=== PATIENT | female | born 1955 | race Caucasian/White ===

== ENCOUNTER 2023-03-02 10:25 | Outpatient (CLI) | payer MEDICARE, OTHER, SELFPAY ==
[2023-03-02 14:04] LABS: Anion Gap 3 mmol/L (8-16); Blood Urea Nitrogen 13 mg/dL (7-17); Calcium 9.2 mg/dL (8.4-10.2); Carbon Dioxide 34 mmol/L (22-30); Chloride 103 mmol/L (98-107); Estimated Glomerular Filt Rate > 60; Glucose 66 mg/dL (65-110); Potassium 4.4 mmol/L (3.4-5.0); Sodium 140 mmol/L (137-145)
== END 2023-03-02 10:26 | disposition home or self-care (01) ==
LOC: ANHSURGERY 10:39
PROVIDERS: Anesthesiology; Visit Provider Obstetrics & Gynecology Gynecology
DX: R60.9 Edema, unspecified (principal)
CPT/HCPCS: 36415; 80048

== ENCOUNTER 2023-03-07 00:51 | Day surgery (SDC) | payer MEDICARE, OTHER, SELFPAY ==
[2023-02-24 14:26] VITALS: BMI 24.4
--- NOTE | 2023-02-24 14:27 | PC.NURSE ---
Report to the Outpatient Waiting Room, entrance under the green pavilion located off [facility], at time __0945 on date _03/07/23 . Planned Procedure Time: _1145 . Time changes happen often and if your time is changed the preop area will call you the afternoon before. - You and your visitor will be asked to self-screen and do not enter if you have any COVID symptoms. - A mask is optional within the hospital at this time. Patients may have clear liquids (water, carbonated beverages, clear teas, apple juice) until 3 hours prior to surgery with a maximum of 20 ounces. - No food from midnight until time of surgery - Infants may have breast milk until 4 hours before surgery, formula 6 hours prior to surgery. - Children will be allowed to drink immediately following surgery. If applicable, please bring a bottle or sippy cup to assist with drinking. Juice, water, soda, and popsicles are readily available. For infants on formula, please bring formula the day of surgery. Pacifiers are allowed. Take the following medications with a SIP of water the morning of surgery: ____NONE DO NOT STOP ANY OF YOUR OTHER PRESCRIPTION MEDICATIONS PRIOR TO SURGERY ?EXCEPT THE FOLLOWING Medications to discontinue per physician ____ALL VITAMINS/SUPPLEMENTS 3 DAYS PRE OP.LAST DOSE 03/03/23 Please no make-up, nail welsh, hairspray, perfume, deodorant, or body powder the day of surgery. No jewelry (including any body piercings) or valuables the day of surgery, leave them at home. Please take a shower or bath the night before, or the morning of, surgery with an antibacterial soap. Wear comfortable, loose fitting clothing. Children are encouraged to wear pajamas. - Jewelry must be removed prior to entering the operating room. Rings and piercings that are not removed may be cut off. - The hospital will not accept responsibility for valuables. - Please leave all valuables, including medications, at home the day of surgery. If you are going home after surgery, a licensed milk driver must drive you home. - NO public transportation without another adult if you receive anesthesia. - We recommend that an adult stay with you for 24 hours following discharge. - We also recommend that you do not drive, make important decision, drink alcoholic beverages, or take any drugs that were not prescribed by your health care provider for at least 24 hours after your discharge time. For Pediatric surgeries, we recommend two adults accompany the child home. Follow any additional instructions given to you from your surgeon. If you or anyone in your household have experienced Covid symptoms in the past week, please notify your surgeon or the nurse liaison at the phone number below for possible testing. Telephone instructions given to ___PATIENT and asked if any additional questions and then verbalized understanding. Patient advised to call surgeon office or pre surgery nurse liaison [phone] if any additional questions.
--- NOTE | 2023-03-07 07:43 | WPDHPUPDATE1 ---
History and Physical Update Update Date/Time: 03/07/23 07:43 History and Physical has been reviewed, including an updated exam of the patient. There are NO changes in the patient's condition. Risks, benefits, and alternatives have been discussed and questions answered. Patient agrees to proceed with procedure.
--- NOTE | 2023-03-07 07:43 | PM.HPGS ---
History of Present Illness History of Present Illness Consent: Risks, benefits, and alternatives have been discussed and questions answered. Patient agrees to proceed with procedure. Chief complaint: thick endometrial lining Narrative: Billie Knight is a 67 year old female who had a pelvic ultrasound ordered by her primary physician that revealed a thickened endometrium at 1.13cm. The endometrium also showed a moderate amount of fluid with a nodular appearance to the periphery of the endometrium. In addition she had a 6cm simple cyst on her right ovary. CA 125 was normal. Patient was initially having pain that did resolve. Was recommended to proceed with D&C hysteroscopy to further evaluate the thickened endometrium. The patient denies any vaginal bleeding. Patient voices understanding and agrees to proceed. Review of Systems Review of Systems: not repeated day of surgery; patient states no changes in status PMFSH Past Medical History Medical History (Updated 03/07/23 @ 07:48 by Floresita Suarez MD) (normal spontaneous vaginal delivery) x2 Osteoporosis Surgical History Surgical History (Updated 03/07/23 @ 07:47 by Floresita Suarez MD) History of breast augmentation History of D&C 1974 for miscarriage Social History Social History Smoking status: Never smoker Living arrangements: with family Spiritual care concerns: No Meds Home Medications and Allergies Home Medications Medication Instructions Recorded Confirmed Type calcium carbonate 600 mg calcium 600 mg PO DAILY 02/24/23 02/24/23 History (1,500 mg) tablet cholecalciferol (vitamin D3) 125 5,000 unit PO DAILY 02/24/23 02/24/23 History mcg (5,000 unit) capsule estradiol 0.01% (0.1 mg/gram) 0.1 appful vaginal WEEKLY 02/24/23 02/24/23 History vaginal cream fexofenadine 180 mg tablet 180 mg PO PRN PRN Allergy Symptoms 02/24/23 02/24/23 History hydrochlorothiazide 25 mg tablet 25 mg PO PRN PRN Edema 02/24/23 02/24/23 History multivitamin (Daily Multi-Vitamin 1 tablet PO DAILY 02/24/23 02/24/23 History tablet) multivitamin with minerals 1 tablet PO DAILY 02/24/23 02/24/23 History (Hair,Skin and Nails tablet) olopatadine 0.1 % eye drops 1 drp EACH EYE BID 02/24/23 02/24/23 History polyethylene glycol 3350 17 17 g PO HS 02/24/23 02/24/23 History gram/dose oral powder vitamin B complex 1 cap PO DAILY 02/24/23 02/24/23 History wheat dextrin-calcium carbonate 1 1 tablet PO DAILY 02/24/23 02/24/23 History gram-100 mg calcium chewable tablet (Easy Fiber (wheat dextrin)) Allergies Allergy/AdvReac Type Severity Reaction Status Date / Time No Known Allergies Allergy Verified 02/24/23 14:08 Exam Const: General: healthy appearing and alert Orientation/consciousness: patient oriented x3 Resp: Effort & Inspection: normal respiratory effort GI: GI Palp: Yes Soft to palpation, No Tenderness to palpation present (GI) and No Palpable mass present : External Female Exam: normal external appearance Speculum Exam - Vagina: normal appearance of the vagina and normal vaginal discharge Speculum Exam - Cervix: normal appearance of the cervix Bimanual exam- vagina & uterus: uterine size normal and consistency normal Bimanual Exam- Adnexa, other: normal adnexae and No adnexal tenderness Neuro: General: patient oriented x3 Assessment and Plan Assessment and plan (1) Thickened endometrium: Code(s): R93.89 - Abnormal findings on diagnostic imaging of other specified body structures Status: Acute Assessment and Plan: plan to proceed with D&C hysteroscopy
--- NOTE | 2023-03-07 10:14 | P.PNAN_ITS ---
Anes - Initial Pre Proc Eval Procedure: Operation Date: 03/07/23 11:45 Proposed Procedures p Hysteroscopy, Dilation and Curettage - Floresita Suarez MD Date/Time: 03/07/23 10:14 Surgeon: Floresita Suarez MD Pre Op Diagnosis: thick endometrial lining Patient Data Age: 67 Gender: F Height: 1.61 m Weight: 63.6 kg Allergies Allergy/AdvReac Type Severity Reaction Status Date / Time No Known Allergies Allergy Verified 02/24/23 14:08 Home Medications Medication Instructions Recorded Confirmed Type calcium carbonate 600 mg calcium 600 mg PO DAILY 02/24/23 02/24/23 History (1,500 mg) tablet cholecalciferol (vitamin D3) 125 5,000 unit PO DAILY 02/24/23 02/24/23 History mcg (5,000 unit) capsule estradiol 0.01% (0.1 mg/gram) 0.1 appful vaginal WEEKLY 02/24/23 02/24/23 History vaginal cream fexofenadine 180 mg tablet 180 mg PO PRN PRN Allergy Symptoms 02/24/23 02/24/23 History hydrochlorothiazide 25 mg tablet 25 mg PO PRN PRN Edema 02/24/23 02/24/23 History multivitamin (Daily Multi-Vitamin 1 tablet PO DAILY 02/24/23 02/24/23 History tablet) multivitamin with minerals 1 tablet PO DAILY 02/24/23 02/24/23 History (Hair,Skin and Nails tablet) olopatadine 0.1 % eye drops 1 drp EACH EYE BID 02/24/23 02/24/23 History polyethylene glycol 3350 17 17 g PO HS 02/24/23 02/24/23 History gram/dose oral powder vitamin B complex 1 cap PO DAILY 02/24/23 02/24/23 History wheat dextrin-calcium carbonate 1 1 tablet PO DAILY 02/24/23 02/24/23 History gram-100 mg calcium chewable tablet (Easy Fiber (wheat dextrin)) Patient hx anesthesia problems: post op nausea/vomiting Family hx anesthesia problems: none Results Review: All pre-operative results and documents have been reviewed as part of the pre- operative evaluation. PMFSH Past Medical History Medical History (normal spontaneous vaginal delivery) x2 Osteoporosis Surgical History Surgical History History of breast augmentation History of D&C 1974 for miscarriage Social History Social History Smoking status: Never smoker Living arrangements: with family Spiritual care concerns: No Anes - Eval Final PreProcedure Day of Procedure 03/07/23 10:14 Patient weight: normal Heart: regular rate and rhythm Lungs: clear to auscultation Airway: Mallampati scale class II Last oral intake: >/= 8 hours ASA classification: II Emergent: no Anesthetic plan: proceed Anesthesia type and monitoring: general GIVS and standard monitoring Results Review: All pre-operative results and documents have been reviewed as part of the pre- operative evaluation. Informed Consent: The patient's anesthetic plan and its attendant risks and benefits were discussed with the patient/family/POA. Questions were solicited and answers provided to the satisfaction of the patient/family/POA.
[2023-03-07] MEDS: ACETAMINOPHEN 500 MG TABLET 1000 MG PO (10:15)
[2023-03-07] MEDS: LACTATED RINGERS 1,000 ML 30 ML IV CONT (10:15)
[2023-03-07 10:48] VITALS: BP 140/85; PULSE 64; RESP 14; TEMP 36.8; O2SAT 100
[2023-03-07] MEDS: LIDOCAINE HCL 1% LOCAL INJ 20 ML VIAL 10 ML INFILTRATE (11:13)
--- NOTE | 2023-03-07 11:27 | P.OP_ITS ---
Procedure Note - Detailed Date of Procedure 03/07/23 Pre-op Diagnosis thick endometrial lining Post-op Diagnosis Same Procedure Performed D&C hysteroscopy Surgeon Floresita Suarez MD Anesthesia MAC and Local Findings internal cervical os is very stenotic; endometrium has several cystic changes with calcification most anteriorly and some posteriorly; otherwise atrophic Description of Procedure The patient is taken to the operating room and placed under anesthesia in the dorsal lithotomy position. She was prepped and draped in usual sterile fashion. Granville speculum was placed in the vagina and the cervix grasped on the anterior lip with a tenaculum. The cervix is injected in each quadrant with 1% lidocaine. The external os is a dimple without visible opening. Os Finders were used to open the external cervical os. These would not go past about 3cm. The hysteroscope was placed and through hydro dissection the cavity is able to be entered. The above-stated findings are noted. The resection device is placed through the hysteroscope and under direct visualization the cystic areas are excised. The hysteroscope was removed. The uterus sounds to 6.5cm. The small sharp curette is used to curette the endometrium until a good uterine cry was noted in all areas. Minimal material was obtained with this process. All instruments are removed. Patient is awakened from anesthesia and taken to recovery in stable condition. Sponge, needle, and instrument counts are correct per the OR staff. Estimated Blood Loss 5 Drains No Packing No Pathology Yes ( Endometrial shavings and curettings) Complications No immediate complications Condition Stable Disposition PACU
[2023-03-07 11:29] VITALS: BP 99/64; PULSE 55; RESP 12; O2SAT 97
[2023-03-07 11:55] VITALS: BP 131/73; PULSE 53; RESP 16; O2SAT 98
[2023-03-07] MEDS: ONDANSETRON INJ 4 MG/2 ML VIAL IV PUSH (12:14)
[2023-03-07 12:30] VITALS: BP 121/62; PULSE 42
[2023-03-07 12:50] VITALS: BP 126/66; PULSE 46
== END 2023-03-07 13:01 | disposition home or self-care (01) ==
PROVIDERS: PCP Nurse Practitioner Family; Visit Provider Obstetrics & Gynecology Gynecology
PROC: 0U5B8ZZ Destruction of Endometrium, Via Natural or Artificial Opening Endoscopic (ICD-10-PCS; CPT 58563; principal; 2023-03-07 11:45)
DX: N85.8 Other specified noninflammatory disorders of uterus (principal); M81.0 Age-related osteoporosis without current pathological fracture; N83.291 Other ovarian cyst, right side
CPT/HCPCS: 58558; 88305; A9270; J2250; J2405; J2704; J3010; J7120